=== PATIENT | male | born 1955 | race Two or more races ===

== ENCOUNTER 2016-07-15 14:12 | Outpatient (CLI) | payer OTHER ==
[~2016-07-15] VITALS: Ht 177.8 cm; Wt 78.2 kg
[2016-07-15 11:26] VITALS: BP 109/67; PULSE 72; RESP 16; Ht 177.8 cm; Wt 78.2 kg
[~2016-07-15 14:12] MED LIST: IBUP-1542 PO; LISI-313 PO; MULT-552 PO; OMEP20CA16 PO; vit c PO
[2016-07-15] MEDS ORDERED: PANT40TA4 PO (14:41)
[2016-07-15] MEDS ORDERED: CLOP75TA27 PO (14:41)
[2016-07-15] MEDS ORDERED: LACT10SO5 PO (14:41)
[2016-07-15] MEDS ORDERED: ASPI-664 PO (14:41)
[2016-07-15] MEDS ORDERED: NITR0.4T6 SL (14:41)
[2016-07-15] MEDS ORDERED: FENO145T19 PO (14:41)
[2016-07-15] MEDS ORDERED: DOCU-159 PO (14:41)
[2016-07-15] MEDS ORDERED: ATOR20TA38 PO (14:41)
[2016-07-15] MEDS ORDERED: METO25TA7 PO (14:41)
[2016-07-15] MEDS ORDERED: LACT20SO2 PO (14:41)
== END 2016-07-15 16:52 | disposition home or self-care (01) ==
LOC: DCC 14:12
PROVIDERS: ATTEND Internal Medicine
DX: R07.9 Chest pain, unspecified (principal); I10 Essential (primary) hypertension; E11.9 Type 2 diabetes mellitus without complications; E78.5 Hyperlipidemia, unspecified

== ENCOUNTER 2016-07-29 11:06 | Outpatient (CLI) | payer OTHER ==
[~2016-07-29] VITALS: Ht 177.8 cm; Wt 78.2 kg
[~2016-07-29 11:06] MED LIST changes: +ASPI-664 PO; +ATOR20TA38 PO; +CLOP75TA27 PO; +DOCU-159 PO; +FENO145T19 PO; -IBUP-1542 PO; +LACT10SO5 PO; +LACT20SO2 PO; +METO25TA7 PO; +NITR0.4T6 SL; -OMEP20CA16 PO; +PANT40TA4 PO
[2016-07-29 11:13] VITALS: BP 105/67; PULSE 62; RESP 16; Ht 177.8 cm; Wt 78.2 kg
--- NOTE | 2016-07-29 11:45 | PN ---
Date/Time of Note Date/Time of Note DATE: 07/29/16 TIME: 11:42 Outpatient Progress Note Chief Complaint ASHD/hypertension/diabetes/hyperlipidemia HPI ASHD/patient was recently hospitalized, patient had angiogram, patient also had PCI and stent, and patient doing well, no chest pain, no PND orthopnea palpitation, Hypertension/no headache or dizziness or lightheadedness, blood pressure controlled, on medication, Diabetes/no polydipsia polyuria hypoglycemia, gastroparesis, on medication, Hyperlipidemia/no xanthoma, on medication, no side effect of medication, Review of Systems Const: No Fever, no chills, no Wt. loss, no Fatigue, normal appetite, no diaphoresis. Eyes: No pain, no discharge, no redness, no visual change, no foreign body. ENT: No pain, no bleeding, no congestion, no sore throat, no dysphagia, no discharge or rhinitis. Lymph: No adenopathy, no tender nodes, no lymphedema. Resp: No SOB, no cough, no sputum, no wheezing, no chest pain. CV: No chest pain, no palpitaions, no REYES, no PND, no edema. GI: Normal appetite, no pain, no nausea, no vomiting, no diarrhea, no blood, no constipation. : No frequency, no urgency, no dysuria, no hematuria, no flank pain, no discharge, no bleeding. Musc: No bone/joint pain, no back pain, no neck pain, no knee pain, no restricted ROM. Skin: No rash, no skin lesions, no erythema, no laceration, no bruising, no pruritus. Neuro: No BRADFORD, no dizziness, no syncope, no seizure, no focal-weakness. Endo: No polyuria, no polydypsia, no dry-skin, no temp-intolerance. Psych: No hallucinations, no depression, no anxiety, no suicidal ideation. Ext: No edema, no pain, no ulcer, no weakness. Physical Exam Vital Signs Date Time Temp Pulse Resp B/P Pulse Ox O2 Delivery O2 Flow Rate FiO2 07/29/16 11:13 98.2 62 16 105/67 98 Room Air General Appearance: A 60 year-old male who appears well-developed, well- nourished, in no acute distress. HEENT: Head normocephalic, atraumatic. Pupils equal, round, reactive to light and accommodate. Sclerae are no jaundice. Nasal turbinates pink without erythema or nasal discharge. Mucous membranes pink and moist without lesions. Oropharynx clear without any exudate or discharge. NECK: Supple. Trachea midline, No thyromegaly, No cervical lymphadenopathy, No mass, No carotid bruits, No JVD, Carotid pulses 2+ bilaterally. PULMONARY: Clear to auscultaion bilaterally, No retractions, Chest expansion symmetric bilaterally, no rales, no ronchi, no dulness on percussion. CARDIAC: Normal SI and S2, Regular rate and rythm, no murmur, gallop, or rub. GASTROINTESTINAL: Abdomen is soft, non-tender, Non Rigid, No distention, Positive bowel sounds x4 quadrants, Liver normal. SKIN: Warm, dry, no rash, no bruise, no echmosis. EXTREMITIES: Bilateral lower extremities normal, no edema, no phlabitus, pulse palpable, no contracture. MUSCULOSKELETAL: Spine Normal, Non-tender, Normal range of motion, No swelling, no deformity, no clubbing, or cyanosis, the patient has no edema to bilateral lower extremities, dorsalis pedis pulses palpable bilaterally. NEUROLOGIC: The patient is awake, alert, oriented, responding to yes/no questions appropriately, moving all extremities, cranial nerve intact, normal strenght, normal power, normal coordination, normal gait. Allergies Coded Allergies: levofloxacin (Verified Allergy, Unknown, 01/05/14) PMH No change Social Hx No change Family Hx No change Assessment/Plan Impression ASHD/hypertension/diabetes/hyperlipidemia Plan Continue all medication, and supportive care, patient education done, Patient to follow with the primary care physician and cardiology, Patient all medication refilled for another month, Increase activity slowly, if any complications or any problem to see primary care physician immediately, Medications Home Meds Reported Medications Lactulose* (Lactulose*) 10 Gm/15 Ml Solution, 10 GM PO BID, ML 07/15/16 Lactulose* (Lactulose*) 20 Gm/30 Ml Solution, 15 GM PO BID, ML 07/15/16 Fenofibrate Nanocrystallized* (Fenofibrate*) 145 Mg Tablet, 145 MG PO DAILY, TAB 07/15/16 Docusate Sodium* (Docusate Sodium*) 100 Mg Capsule, 100 MG PO BID for CONSTIPATION, #60 CAP 5/16/17 Clopidogrel Bisulfate (Clopidogrel) 75 Mg Tablet, 75 MG PO DAILY, #30 TAB 07/15/16 Atorvastatin Calcium* (Atorvastatin Calcium*) 20 Mg Tablet, 20 MG PO QHS, #30 TAB 07/15/16 Aspirin (Low Dose Aspirin) 81 Mg Tablet.dr, 81 MG PO DAILY, #30 TAB 07/15/16 Pantoprazole* (Pantoprazole*) 40 Mg Tablet.dr, 40 MG PO AC BREAKFAST, TAB 07/15/16 Nitroglycerin* (Nitroglycerin* SL) 0.4 Mg Tab.subl, 0.4 MG SL Q5MIN Y for CHEST PAIN, BOTTLE 07/15/16 Metoprolol Succinate* (Toprol XL*) 25 Mg Tab.sr.24h, 25 MG PO DAILY, #30 TAB 07/15/16 [vit c] No Conflict Check, 1000 MG PO DAILY 10/10/14 Multivitamins* (Once Daily*) 1 Tab Tablet, 1 TAB PO DAILY, TAB 10/10/14 Lisinopril* (Lisinopril*) 5 Mg Tablet, 5 MG PO DAILY, TAB 01/05/14 TRE YATES MD July 29, 2016 11:45
== END 2016-07-29 17:00 | disposition home or self-care (01) ==
LOC: DCC 11:06
PROVIDERS: ATTEND Internal Medicine
DX: I25.10 Atherosclerotic heart disease of native coronary artery without angina pectoris (principal); I10 Essential (primary) hypertension; E11.9 Type 2 diabetes mellitus without complications; E78.5 Hyperlipidemia, unspecified

== ENCOUNTER 2016-12-01 04:11 | Inpatient (IN) | payer OTHER ==
[~2016-12-01] VITALS: Ht 180.3 cm; Wt 80.0 kg
[2016-12-01] VITALS (7 sets, daily range): BP systolic 104–161; BP diastolic 59–86; PULSE 51–64; RESP 18; TEMP 98.2; Ht 180.3 cm; Wt 80.0 kg
[~2016-12-01 04:11] MED LIST changes: +METO-335 PO; -METO25TA7 PO; +NITR0.4T32 SL; -NITR0.4T6 SL
[2016-12-01] MEDS ORDERED: SOD CHLORIDE 0.9% 1,000 ML IV STA (04:49)
[2016-12-01] MEDS ORDERED: ONDANSETRON 4 MG INJ IV STA (04:49)
[2016-12-01] MEDS ORDERED: morphine 4 MG/ML VIAL IV STA (04:49)
[2016-12-01 05:07] LABS: BASOPHIL # 0.1 10^3/ul (0.0-0.1); BASOPHILS % 0.8 % (0.0-2.0); EOSINOPHILS # 0.3 10^3/ul (0.0-0.5); EOSINOPHILS % 3.4 % (0.0-7.0); HEMATOCRIT 37.8 % (42.0-52.0); HEMOGLOBIN 12.9 g/dl (14.0-18.0); LYMPHOCYTES # 3.5 10^3/ul (0.8-2.9); LYMPHOCYTES % 48.4 % (15.0-51.0); MEAN CORPUSCULAR HEMOGLOBIN 32.3 pg (29.0-33.0); MEAN CORPUSCULAR HGB CONC 34.1 g/dl (32.0-37.0); MEAN CORPUSCULAR VOLUME 94.5 fl (82.0-101.0); MEAN PLATELET VOLUME 10.7 fl (7.4-10.4); MONOCYTE # 0.5 10^3/ul (0.3-0.9); MONOCYTES % 6.7 % (0.0-11.0); NEUTROPHILS % 40.6 % (39.0-77.0); PLATELET COUNT 243 10^3/UL (140-415); RED CELL DISTRIBUTION WIDTH 12.3 % (11.5-14.5); WHITE BLOOD COUNT 7.3 10^3/ul (4.8-10.8)
[2016-12-01 05:17] LABS: ALANINE AMINOTRANSFERASE 35 IU/L (13-69); ALBUMIN/GLOBULIN RATIO 1.33; ALKALINE PHOSPHATASE 52 IU/L (42-121); ANION GAP 13 (8-16); ASPARTATE AMINO TRANSFERASE 21 IU/L (15-46); BILIRUBIN,INDIRECT 0.4 mg/dl (0-1.1); BILIRUBIN,TOTAL 0.4 mg/dl (0.2-1.3); BLOOD UREA NITROGEN 17 mg/dl (7-20); CALCIUM 9.3 mg/dl (8.4-10.2); CARBON DIOXIDE 25 mmol/L (21-31); CHLORIDE 108 mmol/L (97-110); CREATINE KINASE 118 IU/L (23-200); CREATININE 1.03 mg/dl (0.61-1.24); GLUCOSE 106 mg/dl (70-220); POTASSIUM 3.8 mmol/L (3.5-5.1); SODIUM 142 mmol/L (135-144)
[2016-12-01 05:34] LABS: TROPONIN-I < 0.012 ng/ml (0.00-0.12)
[2016-12-01 05:39] LABS: INR 1.05; PROTIME 13.7 Sec (12.2-14.2); PT RATIO 1.1
--- NOTE | 2016-12-01 05:49 | ERD ---
ER Documentation Chief Complaint Date/Time DATE: 12/01/16 TIME: 05:33 Chief Complaint Pt c/o CP and L arm numbness, stent in June 61-year-old man presents with pressure-like chest discomfort on the left side radiating down the left upper extremity. Patient does have a history of coronary artery disease is status post PCI and stent placement. He also complains of ecchymosis in the left upper arm for a few days which began spontaneously, not associated with trauma. Patient uses atorvastatin and clopidogrel. He has had no cough, no calf or leg swelling, no shortness of breath, no vomiting or diarrhea, no headache or blurry vision. ROS All systems reviewed and are negative except as per history of present illness. Medications Home Meds Reported Medications Lactulose* (Lactulose*) 10 Gm/15 Ml Solution, 10 GM PO BID, ML 07/15/16 Lactulose* (Lactulose*) 20 Gm/30 Ml Solution, 15 GM PO BID, ML 07/15/16 Fenofibrate Nanocrystallized* (Fenofibrate*) 145 Mg Tablet, 145 MG PO DAILY, TAB 07/15/16 Docusate Sodium* (Docusate Sodium*) 100 Mg Capsule, 100 MG PO BID for CONSTIPATION, #60 CAP 07/15/16 Clopidogrel Bisulfate (Clopidogrel) 75 Mg Tablet, 75 MG PO DAILY, #30 TAB 07/15/16 Atorvastatin Calcium* (Atorvastatin Calcium*) 20 Mg Tablet, 20 MG PO QHS, #30 TAB 07/15/16 Aspirin (Low Dose Aspirin) 81 Mg Tablet.dr, 81 MG PO DAILY, #30 TAB 07/15/16 Pantoprazole* (Pantoprazole*) 40 Mg Tablet.dr, 40 MG PO AC BREAKFAST, TAB 07/15/16 Nitroglycerin* (Nitroglycerin* SL) 0.4 Mg Tab.subl, 0.4 MG SL Q5MIN Y for CHEST PAIN, BOTTLE 07/15/16 Metoprolol Succinate* (Toprol XL*) 25 Mg Tab.sr.24h, 25 MG PO DAILY, #30 TAB 07/15/16 [vit c] No Conflict Check, 1000 MG PO DAILY 10/10/14 Multivitamins* (Once Daily*) 1 Tab Tablet, 1 TAB PO DAILY, TAB 10/10/14 Lisinopril* (Lisinopril*) 5 Mg Tablet, 5 MG PO DAILY, TAB 01/05/14 Allergies Allergies: Coded Allergies: levofloxacin (Verified Allergy, Unknown, 01/05/14) PMhx/Soc CAD, ND, dyslipidemia, hypertension, diabetes mellitus Medical and Surgical Hx: pt denies Medical Hx, pt denies Surgical Hx History of Surgery: Yes Anesthesia Reaction: No Hx Neurological Disorder: No Hx Respiratory Disorders: No Hx Cardiac Disorders: Yes (HTN,DM) Hx Psychiatric Problems: No Hx Miscellaneous Medical Probl: No Hx Alcohol Use: No Hx Substance Use: No Hx Tobacco Use: No Smoking Status: Never smoker FmHx Family History: No diabetes Physical Exam Vitals Vital Signs Date Time Temp Pulse Resp B/P Pulse Ox O2 Delivery O2 Flow Rate FiO2 12/01/16 04:49 98.2 60 18 129/90 100 Room Air Physical Exam GENERAL: Well-developed, well-nourished, well-hydrated, in no apparent distress , looks nontoxic in appearance HEENT: Moist mucous membranes, pink conjunctiva, no cervical spine tenderness or step-off deformities, no goiter, no jaundice or icterus, extraocular movements intact without pain. No submandibular induration, and no pharyngeal erythema NEURO: Alert and oriented 3, cranial nerves II through XII intact bilaterally, pupils equal round reactive to light, no focal deficits or facial asymmetry, sensation intact distally Strength 5/5 in upper and lower extremities bilaterally CARDIAC: Regular rate and rhythm, no murmurs rubs or gallops LUNGS: Clear bilaterally no wheezing crackles or stridor ABDOMEN: Soft nontender, no guarding, no rigidity, no rebound, no psoas sign no obturator sign. Normoactive bowel sounds SKIN: Warm and dry to touch, no abrasions, soft tissue contusion superficial hematoma to the left upper extremity, no lacerations, no ecchymosis, no target lesions, and without ulcers EXTREMITIES: No clubbing cyanosis or edema, calves are bilaterally symmetrical, no Homans sign, no popliteal cord sign. Distal pulses equal and bilateral PSYCH: Normal affect without agitation or irritability Result Diagram: 12/01/1643912/01/16439 Results 24 hrs Laboratory Tests Test 12/01/16 04:40 White Blood Count 7.310^3/ul Red Blood Count 4.0010^6/ul Hemoglobin 12.9g/dl Hematocrit 37.8% Mean Corpuscular Volume 94.5fl Mean Corpuscular Hemoglobin 32.3pg Mean Corpuscular Hemoglobin Concent 34.1g/dl Red Cell Distribution Width 12.3% Platelet Count 38215^3/UL Mean Platelet Volume 10.7fl Neutrophils % 40.6% Lymphocytes % 48.4% Monocytes % 6.7% Eosinophils % 3.4% Basophils % 0.8% Nucleated Red Blood Cells % 0.0/100WBC Neutrophils # 3.010^3/ul Lymphocytes # 3.510^3/ul Monocytes # 0.510^3/ul Eosinophils # 0.310^3/ul Basophils # 0.110^3/ul Nucleated Red Blood Cells # 0.010^3/ul Prothrombin Time 13.7Sec Prothrombin Time Ratio 1.1 INR International Normalized Ratio 1.05 Sodium Level 142mmol/L Potassium Level 3.8mmol/L Chloride Level 108mmol/L Carbon Dioxide Level 25mmol/L Anion Gap 13 Blood Urea Nitrogen 17mg/dl Creatinine 1.03mg/dl Glucose Level 106mg/dl Calcium Level 9.3mg/dl Total Bilirubin 0.4mg/dl Direct Bilirubin 0.00mg/dl Indirect Bilirubin 0.4mg/dl Aspartate Amino Transf (AST/SGOT) 21IU/L Alanine Aminotransferase (ALT/SGPT) 35IU/L Alkaline Phosphatase 52IU/L Creatine Kinase 118IU/L Troponin I < 0.012ng/ml Total Protein 7.0g/dl Albumin 4.0g/dl Globulin 3.00g/dl Albumin/Globulin Ratio 1.33 Lipase 95U/L Current Medications Medications (Trade) Dose Ordered Sig/Linda Route PRN Reason Start Time Stop Time Status Last Admin Dose Admin Sodium Chloride (NS) 1,000 ml @ 1,000 mls/hr Q1H STAT IV 12/01/16 04:49 12/01/16 05:48 DC 12/01/16 05:00 Morphine Sulfate (morphine) 4 mg ONCE STAT IV 12/01/16 04:49 12/01/16 04:53 DC 12/01/16 05:00 Ondansetron HCl (Zofran Inj) 4 mg ONCE STAT IV 12/01/16 04:49 12/01/16 04:53 DC 12/01/16 05:00 Procedures/MDM IV line was established patient was placed on library monitor rhythm strip revealed a sinus rhythm at 60 bpm with upright P and T waves. Patient was afebrile. EKG performed, read by me: 61 bpm, normal sinus rhythm, normal axis, no acute ST segment changes, narrow QRS complex, with good R-wave progression in precordial leads. One AP view of the chest performed, read by me reveals no acute infiltrates, normal mediastinum, sharp costophrenic and cardiac borders, no air under the diaphragm. Otherwise unremarkable chest x-ray. Patient used aspirin and Plavix today and I will defer further antiplatelet therapy. Administered 1 L normal saline intravenously, morphine 4 mg IV, Zofran 4 mg IV. Patient is without complaints of chest pain at this time. CBC and electrolytes were normal, liver function tests normal, troponin negative. CK was low Patient will be admitted to telemetry setting for continued medical management cardiology consultation. Departure Diagnosis: Primary Impression: Chest pain Chest pain type: unspecified Qualified Code: R07.9 - Chest pain, unspecified type Condition: RUBIO Valencia MD Dec 01, 2016 05:49
[2016-12-01] MEDS ORDERED: LORAZEPAM 0.5 MG TAB PO ONE (06:00)
[2016-12-01 06:24] LABS: ADD UMIC NO; UR ASCORBIC ACID NEGATIVE (NEGATIVE); UR BILIRUBIN (Dip) NEGATIVE (NEGATIVE); UR BLOOD (Dip) NEGATIVE (NEGATIVE); UR CLARITY CLEAR (CLEAR); UR COLOR STRAW (YELLOW); UR GLUCOSE (Dip) NEGATIVE (NEGATIVE); UR KETONES (Dip) NEGATIVE (NEGATIVE); UR LEUKOCYTE ESTERASE (Dip) NEGATIVE Leu/ul (NEGATIVE); UR NITRITE (Dip) NEGATIVE (NEGATIVE); UR SPECIFIC GRAVITY (Dip) 1.005 (1.003-1.030); UR TOTAL PROTEIN (Dip) NEGATIVE (NEGATIVE); UR UROBILINOGEN (Dip) NEGATIVE (NEGATIVE)
--- NOTE | 2016-12-01 06:24 | RADRPT ---
PROCEDURE: XR Chest. CLINICAL INDICATION: Chest pain TECHNIQUE: A single AP view of the chest was obtained. COMPARISON: None. FINDINGS: Lung volumes are low. No focal airspace opacification, pleural effusion or pneumothorax is seen. Th e cardiomediastinal silhouette is within normal limits for size. Calcifications are seen within the aortic arch. The osseous structures are unremarkable. IMPRESSION: 1. No radiographic evidence of acute cardiopulmonary disease. 2. Aortic atherosclerosis. RPTAT: HH .Esmer Disla MD, MD Date Time Electronically viewed and signed by .Esmer Disla MD, on 12/01/2016 06:24 .G/
--- NOTE | 2016-12-01 07:18 | HP ---
Date/Time of Note Date/Time of Note DATE: 12/01/16 TIME: 07:13 Assessment/Plan VTE Prophylaxis VTE Prophylaxis Intervention: SCD's Assessment/Plan Assessment/Plan ASSESSMENT 61-year-old male with a history of hypertension, diabetes, dyslipidemia and a CAD with stent presenting with chest pain, need to rule out ACS PLAN Telemetry monitoring Trend troponin Continue home medications, which include Plavix, beta-rachelle, ACEI, statin Supplemental oxygen 2D echo and a cardiology consult Check A1c, fasting lipid and TSH in a.m. Insulin while in-house HPI/ROS Admit Date/Time Admit Date/Time Hx of Present Illness This is a 61-year-old male with a history of hypertension, diabetes, dyslipidemia, CAD with stent who presented to the emergency department complaining of chest pain. Chest pain is located in the mid chest and slightly left-sided with radiation to the left arm. Patient unsure if there is exertional component to his pain. Denied shortness of breath, nausea, vomiting , diaphoresis. He said he has been compliant with his medications including his Plavix. Patient also reported some bruising/ecchymosis in his left upper extremity. Denied any trauma or bumping his arm recently. When he presented to the ER, EKG without ST-T wave abnormality and his first troponin is negative. Labs shows hemoglobin of 12.9 otherwise CBC and CMP are unremarkable. Chest x-ray was no active cardiopulmonary disease. PMH/Family/Social Social History Smoking Status: Never smoker Exam/Review of Systems Vital Signs Vitals Vital Signs Date Time Temp Pulse Resp B/P Pulse Ox O2 Delivery O2 Flow Rate FiO2 12/01/16 06:08 64 20 125/74 100 Nasal Cannula 2.0 12/01/16 04:49 98.2 Exam Constitutional: alert, oriented, well developed Head: atraumatic, normocephalic Eyes: EOMI, PERRL Respiratory: clear to auscultation, normal air movement Cardiovascular: nl pulses, regular rate and rhythm Gastrointestinal: soft Extremities: normal pulses Labs Result Diagram: 12/01/1643912/01/16439 TANYA WEINBERG MD Dec 01, 2016 07:18
[2016-12-01] MEDS ORDERED: morphine 2 MG INJ IV PRN (07:30)
[2016-12-01] MEDS ORDERED: ACETAMINOPHEN 325 MG TAB PO PRN (07:30)
[2016-12-01] MEDS ORDERED: NITROGLYCERIN (SL) 0.4 MG TAB SL PRN (07:30)
[2016-12-01] MEDS ORDERED: ONDANSETRON 4 MG INJ IV PRN (07:30)
[2016-12-01] MEDS ORDERED: NACL 0.9% 3 ML SYG IV SCH (07:30)
[2016-12-01] MEDS ORDERED: ALBUTEROL/IPRATROPIUM (NEB) 3 ML AMP HHN PRN (07:30)
[2016-12-01] MEDS ORDERED: PANTOPRAZOLE (EC) 40 MG TAB PO SCH (07:39)
[2016-12-01] MEDS: INSULIN ASPART [NOVOLOG] 3 ML PEN SC SCH ×2 (08:00→11:36)
[2016-12-01] MEDS ORDERED: GLUCOSE GEL 15 GRAM TUBE PO PRN ×2 (08:00)
[2016-12-01] MEDS ORDERED: GLUCAGON 1 MG INJ IM PRN (08:00)
[2016-12-01] MEDS ORDERED: DEXTROSE 50% 50 ML SYRINGE IV PRN ×2 (08:00)
[2016-12-01] MEDS ORDERED: GLUCOSE GEL 15 GRAM TUBE BUCCAL PRN (08:00)
[2016-12-01 08:12] LABS: CREATINE KINASE 95 IU/L (23-200)
[2016-12-01 08:26] LABS: TROPONIN-I < 0.012 ng/ml (0.00-0.12)
[2016-12-01] MEDS ORDERED: METOPROLOL (XL) 25 MG TAB PO SCH (09:00)
[2016-12-01] MEDS ORDERED: MULTIVITAMINS THERAPEUTIC TAB PO SCH (09:00)
[2016-12-01] MEDS ORDERED: CLOPIDOGREL 75 MG TAB PO SCH (09:00)
[2016-12-01] MEDS ORDERED: FENOFIBRATE 145 MG TAB PO SCH (09:00)
[2016-12-01] MEDS ORDERED: LISINOPRIL 5 MG TAB PO SCH (09:00)
[2016-12-01 14:42] LABS: CREATINE KINASE 87 IU/L (23-200)
[2016-12-01 14:55] LABS: CK-MB 1.44 ng/ml (0.0-2.4); TROPONIN-I < 0.012 ng/ml (0.00-0.12)
--- NOTE | 2016-12-01 15:05 | PDOCDIS ---
Discharge Instructions CONDITION Patient Condition: Stable FOLLOW UP/APPOINTMENTS Follow-up Plan Follow up with your slasher tender within the next 2 days Ashkan un seguimiento con lazcano cardilogo en los [address] Knight Office Address [address] [place] [id number] Office FRAN BOND MD Dec 01, 2016 15:05
--- NOTE | 2016-12-01 15:08 | DS ---
Date/Time of Note Date/Time of Note DATE: 12/01/16 TIME: 15:06 Discharge Summary Admission/Discharge Info Admit Date/Time Dec 01, 2016 at 05:59 Discharge Date/Time Discharge Diagnosis chest pain Patient Condition: Stable Procedures serial troponin neg x 3 (4am, 7am, 2pm) Hx of Present Illness This is a 61-year-old male with a history of hypertension, diabetes, dyslipidemia, CAD with stent who presented to the emergency department complaining of chest pain. Chest pain is located in the mid chest and slightly left-sided with radiation to the left arm. Patient unsure if there is exertional component to his pain. Denied shortness of breath, nausea, vomiting , diaphoresis. He said he has been compliant with his medications including his Plavix. Patient also reported some bruising/ecchymosis in his left upper extremity. Denied any trauma or bumping his arm recently. When he presented to the ER, EKG without ST-T wave abnormality and his first troponin is negative. Labs shows hemoglobin of 12.9 otherwise CBC and CMP are unremarkable. Chest x-ray was no active cardiopulmonary disease. Hospital Course Pt admitted for chest pain, resolved shortly after admission. I spoke to patient 's primary traffic officer who states he knows patient "very well." Dr Knight advised outpatient follow up for further evaluation of patient's chest discomfort. No changes from admit meds Home Meds Reported Medications Fenofibrate Nanocrystallized* (Fenofibrate*) 145 Mg Tablet, 145 MG PO DAILY, TAB 07/15/16 Clopidogrel Bisulfate (Clopidogrel) 75 Mg Tablet, 75 MG PO DAILY, #30 TAB 07/15/16 Atorvastatin Calcium* (Atorvastatin Calcium*) 20 Mg Tablet, 20 MG PO QHS, #30 TAB 07/15/16 Pantoprazole* (Pantoprazole*) 40 Mg Tablet., 40 MG PO AC BREAKFAST, TAB 07/15/16 Nitroglycerin* (Nitroglycerin* SL) 0.4 Mg Tab.subl, 0.4 MG SL Q5MIN Y for CHEST PAIN, BOTTLE 07/15/16 Metoprolol Succinate* (Toprol XL*) 25 Mg Tab.sr.24h, 25 MG PO DAILY, #30 TAB 07/15/16 Multivitamins* (Once Daily*) 1 Tab Tablet, 1 TAB PO DAILY, TAB 10/10/14 Lisinopril* (Lisinopril*) 5 Mg Tablet, 5 MG PO DAILY, TAB 01/05/14 Discontinued Reported Medications Lactulose* (Lactulose*) 10 Gm/15 Ml Solution, 10 GM PO BID, ML 07/15/16 Lactulose* (Lactulose*) 20 Gm/30 Ml Solution, 15 GM PO BID, ML 07/15/16 Docusate Sodium* (Docusate Sodium*) 100 Mg Capsule, 100 MG PO BID for CONSTIPATION, #60 CAP 07/15/16 Aspirin (Low Dose Aspirin) 81 Mg Tablet., 81 MG PO DAILY, #30 TAB 07/15/16 [vit c] No Conflict Check, 1000 MG PO DAILY 10/10/14 Follow-up Plan Follow up with your traffic officer within the next 2 days Ashkan un seguimiento con lazcano cardilogo en los [address] Knight Office Address [address] [place] [address]. [address] [place] [address] Office Primary Care Provider [facility] Pending Labs Laboratory Tests Test 12/01/16 04:40 12/01/16 05:55 12/01/16 07:32 12/01/16 09:46 White Blood Count 7.310^3/ul (4.8-10.8) Red Blood Count 4.0010^6/ul (4.70-6.10) Hemoglobin 12.9g/dl (14.0-18.0) Hematocrit 37.8% (42.0-52.0) Mean Corpuscular Volume 94.5fl (82.0-101.0) Mean Corpuscular Hemoglobin 32.3pg (29.0-33.0) Mean Corpuscular Hemoglobin Concent 34.1g/dl (32.0-37.0) Red Cell Distribution Width 12.3% (11.5-14.5) Platelet Count 76476^3/UL (140-415) Mean Platelet Volume 10.7fl (7.4-10.4) Neutrophils % 40.6% (39.0-77.0) Lymphocytes % 48.4% (15.0-51.0) Monocytes % 6.7% (0.0-11.0) Eosinophils % 3.4% (0.0-7.0) Basophils % 0.8% (0.0-2.0) Nucleated Red Blood Cells % 0.0/100WBC (0.0-0.0) Neutrophils # 3.010^3/ul (1.6-7.5) Lymphocytes # 3.510^3/ul (0.8-2.9) Monocytes # 0.510^3/ul (0.3-0.9) Eosinophils # 0.310^3/ul (0.0-0.5) Basophils # 0.110^3/ul (0.0-0.1) Nucleated Red Blood Cells # 0.010^3/ul (0.0-0.0) Prothrombin Time 13.7Sec (12.2-14.2) Prothrombin Time Ratio 1.1 INR International Normalized Ratio 1.05 Sodium Level 142mmol/L (135-144) Potassium Level 3.8mmol/L (3.5-5.1) Chloride Level 108mmol/L (97-110) Carbon Dioxide Level 25mmol/L (21-31) Anion Gap 13 (8-16) Blood Urea Nitrogen 17mg/dl (7-20) Creatinine 1.03mg/dl (0.61-1.24) Glucose Level 106mg/dl (70-220) Calcium Level 9.3mg/dl (8.4-10.2) Total Bilirubin 0.4mg/dl (0.2-1.3) Direct Bilirubin 0.00mg/dl (0.00-0.20) Indirect Bilirubin 0.4mg/dl (0-1.1) Aspartate Amino Transf (AST/SGOT) 21IU/L (15-46) Alanine Aminotransferase (ALT/SGPT) 35IU/L (13-69) Alkaline Phosphatase 52IU/L (42-121) Creatine Kinase 118IU/L (23-200) 95IU/L (23-200) Troponin I < 0.012ng/ml (0.00-0.12) < 0.012ng/ml (0.00-0.12) Total Protein 7.0g/dl (6.1-8.1) Albumin 4.0g/dl (3.3-4.9) Globulin 3.00g/dl (1.3-3.2) Albumin/Globulin Ratio 1.33 Lipase 95U/L (23-300) Urine Color STRAW (YELLOW) Urine Clarity CLEAR (CLEAR) Urine pH 6.0 (5.0-9.0) Urine Specific Sherman 1.005 (1.003-1.030) Urine Ketones NEGATIVEmg/dL (NEGATIVE) Urine Nitrite NEGATIVEmg/dL (NEGATIVE) Urine Bilirubin NEGATIVEmg/dL (NEGATIVE) Urine Urobilinogen NEGATIVEmg/dL (NEGATIVE) Urine Leukocyte Esterase NEGATIVELeu/ul (NEGATIVE) Urine Hemoglobin NEGATIVEmg/dL (NEGATIVE) Urine Glucose NEGATIVEmg/dL (NEGATIVE) Urine Total Protein NEGATIVEmg/dl (NEGATIVE) Creatine Kinase Index 1.9 Creatinine Kinase MB (Mass) 1.80ng/ml (0.0-2.4) Bedside Glucose 101mg/dL (70-220) Test 12/01/16 11:34 12/01/16 14:17 Bedside Glucose 94mg/dL (70-220) Creatine Kinase 87IU/L (23-200) Creatine Kinase Index 1.7 Creatinine Kinase MB (Mass) 1.44ng/ml (0.0-2.4) Troponin I < 0.012ng/ml (0.00-0.12) Copies To: CC: MARLI KNIGHT MD, ELLEN MD Dec 01, 2016 15:08
[2016-12-01] MEDS ORDERED: ATORVASTATIN 20 MG TAB PO SCH (21:00)
[2016-12-02] MEDS ORDERED: ACCU-CHEK XX SCH (02:00)
== END 2016-12-01 16:50 | disposition home or self-care (01) | DRG 313 ==
LOC: E/R 04:11 → TEL 05:59
PROVIDERS: ADMIT Internal Medicine; ATTEND Internal Medicine
DX: R07.9 Chest pain, unspecified (principal); I25.2 Old myocardial infarction; E11.9 Type 2 diabetes mellitus without complications; I25.10 Atherosclerotic heart disease of native coronary artery without angina pectoris; E78.5 Hyperlipidemia, unspecified; Z79.02 Long term (current) use of antithrombotics/antiplatelets; Z95.5 Presence of coronary angioplasty implant and graft
CPT/HCPCS: 36415; 71010; 80053; 81003; 82550; 82553; 82962; 83690; 84484; 85025; 85610; 93005; 96374; 96375; J1815; J2270; J2405; J7030

== ENCOUNTER 2016-12-16 10:40 | Day surgery (SDC) | payer OTHER ==
[2016-12-16] VITALS (11 sets, daily range): BP systolic 106–132; BP diastolic 68–83; PULSE 56–75; RESP 15–20; Ht 170.2 cm; Wt 73.9 kg
[~2016-12-16] VITALS: Ht 170.2 cm; Wt 73.9 kg
[~2016-12-16 10:40] MED LIST changes: -ASPI-664 PO; -DOCU-159 PO; -LACT10SO5 PO; -LACT20SO2 PO; -vit c PO
[2016-12-16] MEDS ORDERED: ASPI-664 PO (11:28)
[2016-12-16] MEDS ORDERED: LISI10TA2 PO (11:29)
[2016-12-16] MEDS ORDERED: ATOR40TA68 PO (11:29)
[2016-12-16] MEDS ORDERED: LINA5TAB PO (11:30)
[2016-12-16] MEDS ORDERED: MIDAZOLAM 1 MG/ML 2 ML INJ ONE (15:39)
[2016-12-16] MEDS ORDERED: LIDOCAINE 1% (MDV) 20 ML INJ ONE (15:39)
[2016-12-16] MEDS ORDERED: FENTAnyl 50 MCG/ML VIAL ONE (15:40)
[2016-12-16] MEDS ORDERED: DIPHENHYDRAMINE 50 MG INJ ONE (15:54)
--- NOTE | 2016-12-16 16:09 | SIPON ---
Date/Time of Note Date/Time of Note DATE: 12/16/16 TIME: 16:08 Operative Report Preoperative Diagnosis abnormal stress test Postoperative Diagnosis same Operation/Procedure Performed left heart cath, Pt has a hx of stent in the LAD Surgeon see signature line assistant spa director none Anesthesia: moderate sedation Estimated blood loss: 0 - 10 ml's Transfusion Required none Specimen none Grafts/Implants none Complications none MARLI TAPIA MD Dec 16, 2016 16:09
--- NOTE | 2016-12-16 16:56 | SP ---
DATE OF PROCEDURE: 12/16/2016 INDICATIONS FOR PROCEDURE: Abnormal cardiac stress test in an individual who has a history of LAD s tent placement. The patient presents for left heart catheterization. PROCEDURE PERFORMED: 1. Left heart catheterization. 2. Selective right coronary angiography. 3. Selective left coronary angiography. 4. Conscious sedation for 1 hour. 5. Fluoroscopy and fluoroscopic use in order to guide needle placement to the vessel. 6. O2 sat monitoring, blood pressure monitoring. 7. Defibrillator pad placements anteriorly and posteriorly. 8. Autonomic nervous system interrogation. 9. Arterial line placement and removal. 10. Right femoral artery angiography and Angio-Seal deployment. PROCEDURE IN DETAIL: After informed consent was obtained by the patient, the patient was brought int o the cardiac catheterization laboratory where the patient's right groin was prepped and draped in u sual sterile fashion. Following this, 1% lidocaine was used in order to infiltrate the right groin . Following this, a 6 Lao sheath was placed. Catheters were placed in the right femoral artery and from here was advanced into the coronary arteries. Selective right coronary angiography, select hector left coronary angiography, selective left ventriculogram was performed. No complications occurr ed. FINDINGS: 1. The patient did not have any significant left main disease. 2. Left main gave 2 branches to the LAD and circumflex. 3. The LAD had a proximal stent which was patent. 4. There is no other vascular blockages in the LAD. 5. The circumflex coronary artery was a codominant vessel and it did not have any significant vascu lar blockages. 6. The RCA was dominant to codominant. It did not have any significant blockages except for approx imately 40% in the mid region. There was no need for stent placement today. LV gram was performed in the FRYE direction and the ejection fraction was 60%. Right femoral arterial angiography: Angio-Seal was deployed with no complications. IMPRESSION: There is a coronary stent placed in the left anterior descending from the past. Today there is no need for stent placement. Medical therapy will be continued. There is approximately 40 % stenosis in the right coronary artery. Dictated By: MARLI TAPIA MD, LP/HÉCTOR Conf#: [id number] DID#: [id number]
[2016-12-16] MEDS ORDERED: HYDROCODONE/APAP (5/325) TAB PO ONE (18:00)
== END 2016-12-16 19:02 | disposition home or self-care (01) ==
LOC: SDS 10:40
PROVIDERS: ATTEND Internal Medicine
DX: R07.9 Chest pain, unspecified (principal); I10 Essential (primary) hypertension; I25.10 Atherosclerotic heart disease of native coronary artery without angina pectoris
CPT/HCPCS: 93458; C1760; C1887; C1894; J1200; J1644; J2250; J3010